=== PATIENT | female | born 1990 | race Caucasian/White ===

== ENCOUNTER 2021-07-06 16:36 | Emergency (ER) | payer MEDICAID ==
[2021-07-06 17:53] LABS: ESTIMATED GFR > 60 mL/min (>60)
== END 2021-07-06 18:47 | disposition home or self-care (01) ==
LOC: JD.ED 16:36
DX: R09.1 Pleurisy (principal); E03.8 Other specified hypothyroidism; Z79.899 Other long term (current) drug therapy; Z90.710 Acquired absence of both cervix and uterus
CPT/HCPCS: 36415; 71045; 71045-26; 80053; 83735; 83880; 84443; 84484; 85025; 85379; 86140; 93005; 99285-25